=== PATIENT | male | born 1960 | race Caucasian/White ===

== ENCOUNTER 2018-09-08 12:58 | Inpatient (IN) | payer OTHER ==
[~2018-09-08] VITALS: Ht 172.7 cm; Wt 69.0 kg
[2018-09-08 14:05] LABS: BASOPHILS # (AUTO) 0.02 x10^3/uL (0-0.1); BASOPHILS % (AUTO) 0 % (0-1); EOSINOPHILS # (AUTO) 0.09 x10^3/uL (0-0.4); EOSINOPHILS % (AUTO) 1 % (1-7); LYMPHOCYTES # (AUTO) 1.59 x10^3/uL (1-3.4); LYMPHOCYTES % (AUTO) 10 % (22-44); MD NO; MEAN CORPUSCULAR HEMOGLOBIN 29.7 pg (27.5-34.5); MEAN CORPUSCULAR HGB CONC 33.1 g/dL (33.2-36.2); MEAN CORPUSCULAR VOLUME 89.5 fL (81-97); MEAN PLATELET VOLUME 7.6 fL (7.4-10.4); MONOCYTES # (AUTO) 0.63 x10^3/uL (0.2-0.8); MONOCYTES % (AUTO) 4 % (2-9); NEUTROPHILS # (AUTO) 13.29 x10^3/uL (1.8-6.8); NEUTROPHILS % (AUTO) 85 % (42-75); PLATELET COUNT 291 x10^3/uL (130-400); RED BLOOD COUNT 5.19 x10^6/uL (4.38-5.82); RED CELL DISTRIBUTION WIDTH 13.9 % (9.4-14.8)
[2018-09-08 14:10] LABS: ALANINE AMINOTRANSFERASE 26 U/L (12-78); ALBUMIN 3.8 g/dL (3.4-5.0); ANION GAP 5 mmol/L (5-15); CALCIUM 8.9 mg/dL (8.5-10.1); CHLORIDE 108 mmol/L (98-107); CREATININE 1.08 mg/dL (0.7-1.3)
[2018-09-08 14:13] LABS: ALKALINE PHOSPHATASE 71 U/L (45-117); BILIRUBIN,TOTAL 0.3 mg/dL (0.2-1.0); TOTAL PROTEIN 7.9 g/dL (6.4-8.2); TROPONIN I < 0.015 ng/mL (0.000-0.045)
[2018-09-08] MEDS ORDERED: OMNIPAQUE 350 MG/ML, 100ML BOTTLE ONE (15:54)
[2018-09-08] MEDS ORDERED: ONDANSETRON 2MG/ML, 2ML IVPush PRN (16:30)
[2018-09-08] MEDS ORDERED: ONDANSETRON ODT 4 MG PO PRN (16:30)
[2018-09-08] MEDS ORDERED: ACETAMINOPHEN 325 MG TABLET PO PRN (16:30)
[2018-09-08] MEDS ORDERED: DOCUSATE 100 MG CAPSULE PO PRN (16:30)
[2018-09-08] MEDS ORDERED: GADOBUTROL 7.5 MMOL/7.5 ML PFS ONE (17:02)
[2018-09-08 17:23] LABS: HEMOGLOBIN A1C 5.8 % (4.2-6.3)
[2018-09-08 17:45] VITALS: BP 147/87
[2018-09-08 20:47] VITALS: BP 138/74
[2018-09-08] MEDS ORDERED: ATORVASTATIN 20 MG TABLET PO SCH (21:00)
[2018-09-08] MEDS ORDERED: TAMS-11 PO (21:01)
[2018-09-08] MEDS ORDERED: ATOR20TA37 PO (21:01)
[2018-09-09 01:29] LABS: MICROSCOPIC NOT IND
[2018-09-09 01:37] LABS: CULTURE INDICATED? NO
[2018-09-09 02:45] VITALS: BP 153/82
[2018-09-09 05:04] LABS: ALBUMIN 3.3 g/dL (3.4-5.0); CALCIUM 8.7 mg/dL (8.5-10.1); CHLORIDE 106 mmol/L (98-107)
[2018-09-09 05:31] LABS: BASOPHILS # (AUTO) 0.04 x10^3/uL (0-0.1); BASOPHILS % (AUTO) 0 % (0-1); EOSINOPHILS # (AUTO) 0.14 x10^3/uL (0-0.4); EOSINOPHILS % (AUTO) 1 % (1-7); LYMPHOCYTES # (AUTO) 2.17 x10^3/uL (1-3.4); LYMPHOCYTES % (AUTO) 20 % (22-44); MD NO; MEAN CORPUSCULAR HGB CONC 33.3 g/dL (33.2-36.2); MEAN CORPUSCULAR VOLUME 90.2 fL (81-97); MONOCYTES # (AUTO) 0.78 x10^3/uL (0.2-0.8); MONOCYTES % (AUTO) 7 % (2-9); NEUTROPHILS # (AUTO) 7.92 x10^3/uL (1.8-6.8); NEUTROPHILS % (AUTO) 72 % (42-75); PLATELET COUNT 304 x10^3/uL (130-400); RED BLOOD COUNT 4.85 x10^6/uL (4.38-5.82); RED CELL DISTRIBUTION WIDTH 13.4 % (9.4-14.8)
[2018-09-09 05:32] LABS: ALANINE AMINOTRANSFERASE 24 U/L (12-78); ALKALINE PHOSPHATASE 62 U/L (45-117); ANION GAP 10 mmol/L (5-15); BILIRUBIN,TOTAL 0.4 mg/dL (0.2-1.0); CHOL/HDL RATIO 4.5; CHOLESTEROL, TOTAL 228 mg/dL (140-239); CREATININE 1.03 mg/dL (0.7-1.3); HDL CHOL % 22 % (26-37); HDL CHOLESTEROL (DIRECT) 51 mg/dL (40-60); LDL CHOLESTEROL,CALCULATED 153 mg/dL (54-169); TOTAL PROTEIN 6.8 g/dL (6.4-8.2); TRIGLYCERIDES 120 mg/dL (50-200); VLDL CHOLESTEROL 24 mg/dL (0-25)
[2018-09-09] MEDS ORDERED: ASPIRIN 81 MG TABLET EC PO SCH (06:00)
[2018-09-09 08:20] VITALS: BP 126/77
[2018-09-09] MEDS ORDERED: TAMSULOSIN 0.4 MG CAP.ER.24H PO SCH (09:00)
[2018-09-09] MEDS ORDERED: LIDOCAINE-MPF 1%, 5ML ONE ×2 (10:53)
[2018-09-09] MEDS ORDERED: ASPI-496 PO (13:51)
== END 2018-09-09 15:51 | disposition home or self-care (01) | DRG 804 ==
LOC: ED 14:55 → EDIP 16:18 → 4WST 17:30
PROVIDERS: ADMIT Internal Medicine; ATTEND Family Medicine
PROC: 07B63ZX Excision of Left Axillary Lymphatic, Percutaneous Approach, Diagnostic (ICD-10-PCS; principal; 2018-09-09)
DX: R59.1 Generalized enlarged lymph nodes (principal); D72.829 Elevated white blood cell count, unspecified; E78.5 Hyperlipidemia, unspecified; F12.10 Cannabis abuse, uncomplicated; N40.0 Benign prostatic hyperplasia without lower urinary tract symptoms; R73.9 Hyperglycemia, unspecified; Z81.1 Family history of alcohol abuse and dependence
CPT/HCPCS: 36415; 38505; 70450; 70553; 71045; 71260; 76942; 80053; 80061; 80307; 81003; 82962; 83036; 83735; 84443; 84484; 85025; 88305; 93005; 93306; 99285; A9585; G0378; Q9967; 92523-GN

== ENCOUNTER 2020-09-15 07:21 | Day surgery (SDC) | payer OTHER ==
[~2020-09-15] VITALS: Ht 172.7 cm; Wt 70.0 kg
[~2020-09-15 07:21] MED LIST: ASPI-496 PO; ATOR20TA37 PO; TAMS-11 PO
[2020-09-15] MEDS ORDERED: CHLORHEXIDINE 15 ML UDC MM STA (08:30)
[2020-09-15] MEDS ORDERED: LACTATED RINGERS 1,000 ML IV SCH (08:30)
[2020-09-15 08:31] VITALS: BP 153/92
[2020-09-15] MEDS ORDERED: CHLORHEXIDINE 15 ML UDC ONE (08:39)
[2020-09-15 08:46] VITALS: BP 153/92
[2020-09-15] MEDS ORDERED: PLEASE ENTER HEIGHT AND WEIGHT MC SCH (09:00)
[2020-09-15] MEDS ORDERED: BUPIVACAINE/PF 0.25% ONE (09:30)
[2020-09-15] MEDS ORDERED: EPINEPHRINE 1 MG/ML, 1ML ONE ×2 (09:30→10:02)
[2020-09-15] MEDS ORDERED: FENTANYL PF 250 MCG/5ML ONE (09:53)
[2020-09-15] MEDS ORDERED: NEOSTIGMINE 1 MG/ML, 10ML ONE (10:02)
[2020-09-15] MEDS ORDERED: GLYCOPYRROLATE 0.2MG/1ML, 5ML ONE (10:02)
[2020-09-15] MEDS ORDERED: PHENYLEPHRINE 10 MG/ML ONE (10:02)
[2020-09-15] MEDS ORDERED: ROCURONIUM 10 MG/ML,10ML ONE (10:02)
[2020-09-15] MEDS ORDERED: PROPOFOL 10 MG/ML, 20ML ONE (10:02)
[2020-09-15] MEDS ORDERED: SUCCINYLCHOLINE 20 MG/ML, 10ML ONE (10:02)
[2020-09-15] MEDS ORDERED: DEXAMETHASONE 4 MG/ML, 5ML ONE (10:02)
[2020-09-15] MEDS ORDERED: EPHEDRINE 50 MG/ML, 1ML ONE (10:02)
[2020-09-15] MEDS ORDERED: CEFAZOLIN 1,000 MG ONE (10:02)
[2020-09-15] MEDS ORDERED: ONDANSETRON 2MG/ML, 2ML ONE (10:02)
[2020-09-15] MEDS ORDERED: KETOROLAC 30 MG/1 ML ONE (10:02)
[2020-09-15] MEDS ORDERED: FENTANYL PF 100 MCG/2ML ONE (11:39)
[2020-09-15] MEDS ORDERED: OXYcodone 5 MG/5 ML ORAL.SOL UDC PO PRN (12:30)
[2020-09-15] MEDS ORDERED: HYDROmorphone 1 MG/ML, 1ML INJ IVPush PRN (12:30)
[2020-09-15] MEDS ORDERED: ONDANSETRON 2MG/ML, 2ML IVPush PRN (12:30)
[2020-09-15] MEDS ORDERED: LABETALOL 5MG/ML, 20ML IV PRN (12:30)
[2020-09-15] MEDS ORDERED: ACETAMINOPHEN 325 MG TABLET PO PRN (12:30)
[2020-09-15] MEDS ORDERED: FENTANYL PF 100 MCG/2ML IV PRN (12:30)
[2020-09-15] MEDS ORDERED: hydrALAzine 20 MG/ML, 1ML IV PRN (12:30)
== END 2020-09-15 15:55 | disposition home or self-care (01) ==
LOC: OUT 07:21
PROVIDERS: ATTEND Orthopaedic Surgery
DX: S42.021A Displaced fracture of shaft of right clavicle, initial encounter for closed fracture (principal); F12.90 Cannabis use, unspecified, uncomplicated; Z20.828 Contact with and (suspected) exposure to other viral communicable diseases; Z79.899 Other long term (current) drug therapy; W01.0XXA Fall on same level from slipping, tripping and stumbling without subsequent striking against object, initial encounter; Y93.89 Activity, other specified; Y92.89 Other specified places as the place of occurrence of the external cause; Y99.0 Civilian activity done for income or pay
CPT/HCPCS: 23515; 73000; 87635; 93005; C1713; C1762; J0171; J0330; J0690; J1100; J1885; J2370; J2405; J2704; J2710; J3010; J7120; 76000